=== PATIENT | male | born 1980 | race Caucasian/White ===

== ENCOUNTER 2021-05-17 20:10 | Emergency (ER) | payer SELFPAY ==
--- NOTE | 2021-05-17 21:01 | EDM.PDOC ---
ED HPI GENERAL MEDICAL PROBLEM - General Chief Complaint: Trauma Stated Complaint: RIGHT ARM PAIN Time Seen by Provider: 05/17/21 20:45 Source of Information: Reports: Patient History Limitations: Reports: No Limitations - History of Present Illness INITIAL COMMENTS - FREE TEXT/NARRATIVE: Luis is a 41-year-old male presenting to the ED with concerns of injury to his right arm. The patient states that today he was throwing a hose a heavy hose about 100 feet out into the [place] and suddenly felt a pop, crackle, and then deformity of his biceps. The injury occurred with a bowling style strain as he was throwing this underhand like a bowling ball. The patient comes in with his arm extended above his head and his forearm over his head. He seems quite anxious and animated. He denies previous injury of this arm. - Related Data Allergies Allergy/AdvReac Type Severity Reaction Status Date / Time No Known Allergies Allergy Verified 02/24/14 13:37 Home Meds: Home Meds NK [No Known Home Meds] 02/24/14 [History] Past Medical History - Past Health History Medical/Surgical History: Denies Medical/Surgical History Review of Systems - Review of Systems Review Of Systems: See Below Constitutional: Reports: No Symptoms Respiratory: Reports: No Symptoms Cardiovascular: Reports: No Symptoms Musculoskeletal: Reports: Shoulder Pain (Right shoulder pain), Arm Pain (Significant right arm pain extending up into the shoulder. There is a large bulge of the bicep distal on the humerus.) Skin: Reports: No Symptoms Neurological: Reports: No Symptoms Psychiatric: Reports: Anxiety ED EXAM, GENERAL - Physical Exam Exam: See Below Exam Limited By: No Limitations General Appearance: Alert, Anxious, Mild Distress Extremities: Limited Range of Motion (Limited range of motion of the right shoulder and forearm. There is a large bulge of the bicep distally with a void between the biceps and the shoulder consistent with a proximal bicep tendon tear.) Neurological: Alert, Oriented, Normal Cognition, No Motor/Sensory Deficits Psychiatric: Anxious Skin Exam: Warm, Dry, Intact, Normal Color Lymphatic: No Adenopathy Course - Vital Signs Last Recorded V/S: Last Vital Signs Temp 36.3 C 05/17/21 20:39 Pulse 102 H 05/17/21 20:39 Resp 18 05/17/21 20:39 BP 191/105 H 05/17/21 20:39 Pulse Ox 100 05/17/21 20:39 - Re-Assessments/Exams Free Text/Narrative Re-Assessment/Exam: 05/17/21 21:05 lamination, it appears that he has a proximal right bicep tendon tear with significant reduction in range of motion of the shoulder and and forearm. There is a distal bulge in the biceps with a significant void between the bulge in the shoulder. I discussed the case with Dr. Haney who recommended a simple sling, something for pain control, and he will follow up with him in the clinic. This was discussed with the patient who is in agreement with this plan. Patient would like to stay with something more organic so we discussed the use of aspirin. Departure - Departure Time of Disposition: 21:01 Disposition: Home, Self-Care 01 Clinical Impression: Biceps tendon tear Labral tear of long head of biceps tendon Qualifiers: Encounter type: initial encounter Laterality: right Qualified Code(s): S46.111A - Strain of muscle, fascia and tendon of long head of biceps, right arm, initial encounter - Discharge Information Instructions: Proximal Biceps Tendon Tear Referrals: PCP,None [Primary Care Provider] - Forms: ED Department Discharge Care Plan Goals: Wear the simple sling to support the arm. You may use it as tolerated. No heavy lifting with the arm. I have arranged for you to follow-up with Dr. Haney in orthopedics. You will be contacted for that appointment. You may take Tylenol, ibuprofen, or aspirin for pain. I am also sending you home with a small amount of Tylenol with codeine for more severe pain. You may want to ice the area to reduce spasm. Sepsis Event Note (ED) - Focused Exam Vital Signs: Vital Signs Temp Pulse Resp BP Pulse Ox 05/17/21 20:39 36.3 C 102 H 18 191/105 H 100 - Problem List & Annotations (1) Biceps tendon tear SNOMED Code(s): 823657462 Code(s): S46.219A - STRAIN OF MUSC/FASC/TEND PRT BICEPS, UNSP ARM, INIT Status: Acute Priority: Medium Current Visit: Yes (2) Labral tear of long head of biceps tendon SNOMED Code(s): 24386315 Code(s): S46.119A - STRAIN OF MUSC/FASC/TEND LONG HEAD OF BICEPS, UNSP ARM, INIT Status: Acute Priority: Medium Current Visit: Yes Qualifiers: Encounter type: initial encounter Laterality: right Qualified Code(s): S46.111A - Strain of muscle, fascia and tendon of long head of biceps, right arm, initial encounter - Problem List Review Problem List Initiated/Reviewed/Updated: Yes
== END 2021-05-17 21:32 | disposition home or self-care (01) ==
LOC: JP.ED 20:10
DX: S46.111A Strain of muscle, fascia and tendon of long head of biceps, right arm, initial encounter (principal); W20.8XXA Other cause of strike by thrown, projected or falling object, initial encounter
CPT/HCPCS: 99283